=== PATIENT | female | born 1975 | race Caucasian/White ===

== ENCOUNTER 2016-09-06 12:38 | Emergency (ER) | payer BC ==
[2016-09-06] MEDS ORDERED: KETOROLAC 60 MG/2 ML VIAL IM ONE (12:47)
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
[2016-09-06 13:02] VITALS: RESP 14; TEMP 98.2
--- NOTE | 2016-09-06 13:47 | DI ---
XR C-SPINE COMPLETE MIN 4VW,09/06/2016 12:47 PM: Clinical History: Neck pain Previous Exam: June 03, 2008 Findings: AP, lateral and oblique views of the cervical spine are obtained, and demonstrate anatomic alignment without fractures. There is mild loss of intervertebral disc height at the C5/6 level with endplate o steophytes. Prevertebral soft tissues are unremarkable. The lung apices are clear. Impression: Mild degenerative changes of the cervical spine at the C5/6 level otherwise unremarkable.
--- NOTE | 2016-09-06 13:47 | DI ---
XR PELVIS 1-2VW,09/06/2016 12:47 PM: Clinical History: Hip pain Previous Exam: None at this facility. Findings: A single frontal radiograph of the pelvis is obtained, and demonstrate some degenerative changes invo lving the right L5/S1 posterior articulating facets. A large amount of dried stool is seen throughout the colon. Impression: No fractures.
== END 2016-09-06 14:03 | disposition home or self-care (01) ==
LOC: ER 12:38
DX: M62.830 Muscle spasm of back (principal); M25.551 Pain in right hip; M54.5 Low back pain; V43.52XA Car driver injured in collision with other type car in traffic accident, initial encounter
CPT/HCPCS: 72050; 72170; 96372; 99283 ×2; J1885; J2360